=== PATIENT | male | born 1990 | race African-American/Black ===

== ENCOUNTER 2018-12-05 16:46 | Emergency (ER) | payer SELFPAY ==
[2018-12-05 16:53] VITALS: BP 165/115
--- NOTE | 2018-12-05 17:14 | UC ---
General HPI - HPI Summary HPI Summary: 28-year-old male comes in with a chief complaint of left arm and left upper chest pain. Started about 2 days ago. Reports is about a 2 out of 10. 3-4 days ago he did play basketball which did not late a long time. He did not have any chest or arm pain at that time. The discomfort in his left chest and left arm is intermittent. Denies any nauseous sweaty or shortness of breath. Patient has a history of hypertension is on amlodipine 10 mg once a day and clonidine 0.3 mg 3 times a day. He ran out of his amlodipine several days ago. He wonders if the high blood pressure is giving him the chest and arm discomfort. - History of Current Complaint Chief Complaint: UCChestPain Stated Complaint: CHEST PAIN Time Seen by Provider: 12/05/18 16:56 Pain Intensity: 4 - Allergy/Home Medications Allergies/Adverse Reactions: Allergies Allergy/AdvReac Type Severity Reaction Status Date / Time No Known Allergies Allergy Verified 12/05/18 16:49 Home Medications: Home Medications Omeprazole 20 mg PO DAILY 12/05/18 [History Confirmed 12/05/18] amLODIPine TAB* [Norvasc 5 mg TAB*] 10 mg PO DAILY 12/05/18 [History Confirmed 12/05/18] cloNIDine TAB* [Catapres 0.1 MG TAB*] 0.3 mg PO DAILY 12/05/18 [History Confirmed 12/05/18] PMH/Surg Hx/FS Hx/Imm Hx Previously Healthy: Yes Cardiovascular History: Hypertension GI/ History: Gastroesophageal Reflux - Surgical History Surgical History: None - Family History Known Family History: Positive: Non-Contributory - Social History Alcohol Use: Occasionally Substance Use Type: None Smoking Status (MU): Current Every Day Smoker Type: Cigarettes Amount Used/How Often: 4 cigs/day Length of Time of Smoking/Using Tobacco: 1.5 year Review of Systems All Other Systems Reviewed And Are Negative: Yes Constitutional: Positive: Negative Skin: Positive: Negative Eyes: Positive: Negative ENT: Positive: Negative Respiratory: Positive: Negative Cardiovascular: Positive: Chest Pain Gastrointestinal: Positive: Negative Motor: Positive: Negative Neurovascular: Positive: Negative Musculoskeletal: Positive: Other: - SEE HPI Neurological: Positive: Negative Psychological: Positive: Negative Is Patient Immunocompromised?: No Physical Exam Triage Information Reviewed: Yes Appearance: Well-Appearing, No Pain Distress, Well-Nourished Vital Signs: Initial Vital Signs Temp 98.9 F 12/05/18 16:47 Pulse 90 12/05/18 16:47 Resp 16 12/05/18 16:47 BP 165/115 12/05/18 16:47 Pulse Ox 99 12/05/18 16:47 Vital Signs Reviewed: Yes Eye Exam: Normal Eyes: Positive: Conjunctiva Clear Neck: Positive: Supple, Nontender Respiratory: Positive: Lungs clear, Normal breath sounds, No respiratory distress Cardiovascular: Positive: RRR Musculoskeletal: Positive: Strength Intact, ROM Intact, Other: - Radial pulses are normal normal sensation in both arms normal capillary refill in both arms. Fingers wrist elbows shoulders have full range of motion full-strength. The left deltoid and shoulder are nontender to palpation. Neurological: Positive: Alert Psychological: Positive: Age Appropriate Behavior Skin: Positive: Other Diagnostics - EKG Cardiac Rate: NL - AT 16:44 Cardiac Rhythm: Sinus: Normal - 86BPM Ectopy: None Summary of EKG Findings: ST elevation probable normal early repolarization pattern. ST elevations are concave up and there are no reciprocal changes. No prior EKG to compare to. Course/Dx - Course Course Of Treatment: I discussed the EKG with the patient. He does have ST elevation that's concave up consistent with early repolarization. Blood pressures elevated and is been out of his amlodipine for several days. The discomfort does not get worse with activity. Does not have shortness of breath nausea. Discussed with the patient that if there is any heart concerns the emergency department as the place that can further investigate and treat heart conditions. Plan right now is to restart the amlodipine 10 mg once a day and maintain the clonidine 0.3 mg 3 times a day and also establish with a primary care physician. We discussed that if his pain did not improve or worsened or if he had shortness of breath or any other symptoms is to go to the emergency department further evaluation and care. - Diagnoses Provider Diagnosis: Left arm pain, Chest pain, Hypertension Discharge ED - Sign-Out/Discharge Documenting (check all that apply): Patient Departure All imaging exams completed and their final reports reviewed: No Studies - Discharge Plan Condition: Stable Disposition: HOME Prescriptions: Amlodipine Besylate [Norvasc] 10 mg PO DAILY #30 tablet cloNIDine HCl [Clonidine HCl 0.3 MG] 0.3 mg PO TID #90 tab Omeprazole 20 mg PO DAILY #30 capsule. Patient Education Materials: Chest Pain (ED), Hypertension (ED), Arm Pain (ED) Referrals: [facility]FERR[facility] [Outside] [facility] [Provider Group] Care [facility] [Outside] Additional Instructions: FOLLOW UP WITH YOUR DOCTOR. GO TO THE EMERGENCY DEPARTMENT IF NOT IMPROVING OR YOUR CONDITION WORSENS; CHEST PAION, SHORTNESS OF BREATH, YOU FEEL ILL OR ANY QUESTIONS OR CONCERNS. - Billing Disposition and Condition Condition: STABLE Disposition: Home
== END 2018-12-05 17:40 | disposition home or self-care (01) ==
LOC: EDBD 16:46 → UCCORT 16:46
DX: R07.9 Chest pain, unspecified (principal); M79.602 Pain in left arm; I10 Essential (primary) hypertension; K21.9 Gastro-esophageal reflux disease without esophagitis; F17.210 Nicotine dependence, cigarettes, uncomplicated; Z79.899 Other long term (current) drug therapy
CPT/HCPCS: 93005; 99202; G0463